=== PATIENT | male | born 2000 | race Caucasian/White ===

== ENCOUNTER 2022-07-11 09:02 | Emergency (ER) | payer BC, OTHER ==
[~2022-07-11] VITALS: Ht 160 cm; Wt 75.7 kg
[2022-07-11 09:04] VITALS: BP 133/94
--- NOTE | 2022-07-11 09:09 | NUR ---
PT AMBULATED TO BED 3
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
--- NOTE | 2022-07-11 10:04 | NUR ---
XRAY AT BEDSIDE
[2022-07-11 11:07] VITALS: BP 134/66
[2022-07-11] MEDS ORDERED: NAPR-1704 PO (11:17)
--- NOTE | 2022-07-11 11:23 | NUR ---
short finger splint applied to Avani villagran.
--- NOTE | 2022-07-11 11:34 | NUR ---
Patient discharged with v/s stable. Written and verbal after care instructions FOR HAND CONTUSION AND ABRASION given and explained. Patient alert, oriented and verbalized understanding of instructions. Ambulatory with steady gait. All questions addressed prior to discharge. ID band removed. Patient advised to follow up with PMD. Rx of NAPROXEN given. Opportunity to ask questions provided and answered.
--- NOTE | 2022-07-11 11:37 | NUR ---
The patient's care was reviewed and supervised by [facility], RN.
== END 2022-07-11 11:34 | disposition home or self-care (01) ==
LOC: MED 09:02
DX: S60.051A Contusion of right little finger without damage to nail, initial encounter (principal); Z79.899 Other long term (current) drug therapy; W22.8XXA Striking against or struck by other objects, initial encounter; Y93.89 Activity, other specified; Y92.89 Other specified places as the place of occurrence of the external cause; Y99.8 Other external cause status
CPT/HCPCS: 73140; 90471; 90715; 99283